=== PATIENT | female | born 1990 | race Caucasian/White ===

== ENCOUNTER 2018-06-20 21:10 | Emergency (ER) | payer MEDICAID ==
[~2018-06-20] VITALS: Ht 154.9 cm; Wt 48.5 kg
[2018-06-20 21:10] VITALS: BP 132/79
[2018-06-20] MEDS ORDERED: ACETAMINOPHEN ES 500 MG TABLET PO ONE (22:00)
[2018-06-20] MEDS ORDERED: IBUPROFEN 600 MG TABLET PO ONE ×2 (22:00→22:03)
[2018-06-20] MEDS ORDERED: ACETAMINOPHEN ES 500 MG TABLET ONE (22:03)
== END 2018-06-20 22:14 | disposition home or self-care (01) ==
LOC: ER 21:13
DX: J06.9 Acute upper respiratory infection, unspecified (principal)
CPT/HCPCS: 99283; A4606; Z7610